=== PATIENT | male | born 1995 | race Caucasian/White ===

== ENCOUNTER 2017-07-07 20:19 | Emergency (ER) | payer OTHER ==
[~2017-07-07] VITALS: Ht 175.3 cm; Wt 77.2 kg
[2017-07-07 20:35] VITALS: TEMP 36.9; Ht 175.3 cm; Wt 77.2 kg
[2017-07-07] MEDS ORDERED: BACITRACIN OINT 15 GM TUBE EXT ONE (21:30)
[2017-07-07 21:36] VITALS: BP 119/69; PULSE 63; O2SAT 98
--- NOTE | 2017-07-07 23:26 | EMERGENCY ROOM VISIT NOTE ---
History First contact with patient: 20:38 Chief Complaint: LACERATION/CUT (NON-SUTURE) Stated Complaint: CUT ON FINGER Nursing Triage Summary: c/o cut to left middle finger. occured at work. states "it happened a couple hours ago, when i took off the bandaid i was worried it might need stitches." bandage in place in triage. History of Present Illness The patient is a 21 year old male who presents to the Emergency Room with complaints of a laceration to the tip of his left third finger. The patient reports that this injury happened at work approximately 4.5 hours ago. He was carrying glass to a recycling bin when a broken beer bottle cut his finger. The patient reports persistent bleeding, and rates his discomfort a 1 out of 10. Tetanus immunization is up-to-date. The patient is right-hand dominant. Review of Systems 6 system review was performed and was negative except for pertinent positives and negatives as indicated in history of present illness Past Medical/Surgical History Medical Problems: (1) Bronchitis Surgical Problems: (1) No history of previous surgery Family History FH: cancer FH: diabetes mellitus FH: heart disease FH: hypertension FH: lung disease Social History Smoking Status: Former Smoker Alcohol Use: occasionally Marital Status: single Occupation Status: employed Physical Exam Vital Signs Date Time Temp Pulse Resp B/P (MAP) Pulse Ox O2 Delivery O2 Flow Rate FiO2 07/07/17 21:36 63 18 119/69 98 07/07/17 20:35 36.9 63 18 119/69 98 Room Air Physical Exam CONSTITUTIONAL: Healthy and well nourished. Alert and oriented X 3 with positive affect. Patient does not appear in any acute distress. HEENT: Normocephalic, atraumatic. Pupils equal, round and reactive. MUSCULOSKELETAL: Examination of the left third fingertip shows a small 3 mm laceration that does not involve the nail plate. No active bleeding noted on exam. No obvious glass foreign body. A refill is less than 2 seconds. INTEGUMENTARY: No rash or other significant dermatologic conditions noted. NEUROLOGIC: Left third fingertip is sensory intact. Medical Decision & Procedures Medications Administered Medications (Trade) Dose Ordered Sig/Amor Route Start Time Stop Time Status Last Admin Dose Admin Bacitracin (Bacitracin Oint) 1 appln NOW ONCE EXT 07/07/17 21:30 07/07/17 21:31 DC 07/07/17 21:[address] [place] [address] ED Course Patient history and physical exam were performed. Nurse's notes were reviewed. Vital signs were reviewed and were normal. The patient's laceration is not all that large. I did offer to perform suture closure, however suggested at this wound should heal well by secondary intention. The patient was in agreement. The wound was cleansed and covered with a bacitracin dressing. He was given further verbal and written wound care instructions. Ice and elevation , as well as ibuprofen or Tylenol, as needed for pain. He was instructed to watch for any signs of developing infection. The patient was happy with plan of care, voiced understanding of all discharge instructions, and denied any significant discomfort at the time of discharge. Medical Decision Medication Reconcilliation Current Medication List: was personally reviewed by me Blood Pressure Screening Patient's blood pressure: Normal blood pressure Impression Primary Impression: Laceration of left middle finger Additional Impression: Work related injury Departure Information Dispostion Home / Self-Care Condition GOOD Forms HOME CARE DOCUMENTATION FORM, IMPORTANT VISIT INFORMATION Patient Instructions My [facility] Additional Instructions Keep wound clean and covered with an antibiotic ointment and dressing until it heals. Ibuprofen or Tylenol as needed for pain. Return to the emergency department for any signs of developing infection. Problem Qualifiers Primary Impression: Laceration of left middle finger Encounter type: initial encounter Damage to nail status: without damage Foreign body presence: without foreign body Qualified Codes: S61.213A - Laceration without foreign body of left middle finger without damage to nail, initial encounter
== END 2017-07-07 21:37 | disposition home or self-care (01) ==
LOC: C.EDB 20:21 → C.EDD 21:37
DX: S61.213A Laceration without foreign body of left middle finger without damage to nail, initial encounter (principal); W25.XXXA Contact with sharp glass, initial encounter; Y99.0 Civilian activity done for income or pay; Z80.9 Family history of malignant neoplasm, unspecified; Z83.3 Family history of diabetes mellitus; Z82.49 Family history of ischemic heart disease and other diseases of the circulatory system; Z87.891 Personal history of nicotine dependence